=== PATIENT | female | born 1985 | race Caucasian/White ===

== ENCOUNTER 2016-11-29 19:59 | Emergency (ER) | payer OTHER ==
--- NOTE | ~2016-11-29 | CT4 ---
[facility] A Service of [facility] RADIOLOGY TEXT RESULTS PATIENT: ROSAMARIA FOSTER LOCATION: [facility] : 85 UNIT #: [id number] AGE: [address]: Robert Art DO SEX: F ORDER DR: [id number] [facility] [address] [place], [place] [address] [id number] E MR#: [id number] Acc #: [id number] NAME: ROSAMARIA FOSTER : 1985 SEX: F STUDY DATE/TIME: 11/29/2016 22:05 UNIT: [facility] ROOM: STUDY DESCRIPTION: CT Abd and Pelv Wo Cont Attending Physician: Robert Art D.O. Ordering Physician: Robert Art D.O. MEDICAL IMAGING REPORT This report is preliminary unless electronic signature is present EXAM CT of the abdomen and pelvis without contrast HISTORY Right flank pain for the past [address] of the abdomen and pelvis. This CT exam was performed with one or more of the following radiation dose reduction techniques: automatic exposure control, adjustment of mA and/or kV according to patient size, and iterative reconstruction. COMPARISON 11/12/2013 FINDINGS ABDOMEN WITHOUT CONTRAST: The liver, spleen, adrenal glands, pancreas, gallbladder have an unremarkable, unenhanced appearance. The bowel loops are nondilated. No radiodense urinary system calculus or hydronephrosis. The appendix is not well seen on this study. PELVIS WITHOUT CONTRAST: No radiodense bladder calculus. No aggressive appearing bone lesion. IMPRESSION 1. No clearly acute finding. No radiodense urinary system calculus or hydronephrosis. 2. Appendix not clearly seen on this study. Dictated by... Lauro Munoz M.D. [facility] A Service [facility] RADIOLOGY TEXT RESULTS PATIENT: ROSAMARIA FOSTER LOCATION: [facility] : 85 UNIT #: [id number] AGE: [address]: Hottman,Robert M DO SEX: F ORDER DR: THIS IS AN ELECTRONICALLY VERIFIED REPORT Lauro Munoz M.D. at 12/09/2016 3:30 PM Annalisa TD: 11/30/2016 09:03 JOB #: [id number] MEDICAL IMAGING REPORT Page 1 of 1 COPY
[~2016-11-29 19:59] MED LIST: BACIT-POLYMYXI3.5 GM OP; BACTRIM DS TABL1 TA1 PO; BACTRIM DS TABL1 TA2 PO; BACTRIM DS TABL1 TAB PO; CIPRO PO; DARVOCET-N 1001 TAB PO; FIORICET 50-321 EACH PO; FIORINAL CAPSUL1 CAP PO; FLEXERIL PO; FLEXERIL10 M1 PO; FLEXERIL10 MG PO; IBUPROFEN800 MG PO; KCL PO; LAMICTAL PO; LOPRESSOR PO; LORTAB 5/500 TA1 TA1 PO; MACRODANTIN PO; MUCINEX DM1 TAB.SR . PO; NO MEDICATIONS; OMNICEF300 MG PO; PHENERGAN PO; PHENERGAN25 M1 PO; PHENERGAN25 MG PO; PRENATAL VITAMI1 TA3 PO; PRILOSEC20 MG PO; PYRIDIUM PO; PYRIDIUM100 MG PO; SUBOXONE 12 MG1 EACH; TYLENOL #3 PO; TYLOX 5/500 CAP1 CAP PO; ULTRAM PO; VICODIN 5/1 TAB 5/50 PO; VICODIN 5/500 T1 TAB PO; VICODIN PO; VOLTAREN75 MG PO; ZOFRAN PO; [UNRECOGNIZED DRUG - OTHER] PO; [UNRECOGNIZED DRUG - REMARK]
[2016-11-29 22:17] LABS: URINE SOURCE CLEAN CATCH
[2016-11-29 22:21] LABS: URINE APPEARANCE CLEAR; URINE BLOOD NEG (NEG); URINE COLOR DK YELLOW; URINE GLUCOSE NEG (NEG); URINE KETONE NEG (NEG); URINE LEUKOCYTE ESTERASE NEG (NEG); URINE NITRATE NEG (NEG); URINE PH 7.5 (5-8); URINE PROTEIN TRACE (NEG); URINE SPECIFIC GRAVITY 1.028 (1.003-1.035)
[2016-11-29 22:24] LABS: BASOPHIL% 0.6 % (0-2.5); EOSINOPHIL# 0.4 X10e3 (0-0.7); EOSINOPHIL% 5.3 % (0.0-7.0); LYMPHOCYTE# 2.3 X10e3 (1.0-3.5); LYMPHOCYTE% 32.2 % (17.0-45.0); MEAN CELL VOLUME 88.6 FL (83-96); MEAN CORPUSCULAR HEMOGLOBIN 28.7 PG (28-34); MEAN CORPUSCULAR HGB CONC 32.4 g/dL (30-36); MEAN PLATELET VOLUME 8.6 FL (6.5-11.5); MONOCYTE# 0.4 X10e3 (0-1.0); MONOCYTE% 5.9 % (3.0-12.0); PLATELET COUNT 249 X10e3 (140-420); RED BLOOD COUNT 4.52 X10e (3.90-5.30); RED CELL DISTRIBUTION WIDTH 15.3 % (11.0-15.5); WHITE BLOOD COUNT 7.2 X10e3 (4.0-10.5)
[2016-11-29 22:33] LABS: AMPHETAMINE NEG (NEG); BARBITURATES NEG (NEG); BENZODIAZEPINES NEG (NEG); COCAINE NEG (NEG); CULTURE INDICATED? NO; MARIJUANA POS (NEG); OPIATES POS (NEG); TRICYCLIC ANTIDEPRESSANTS NEG (NEG); U METHADONE NEG (NEG)
[2016-11-29 22:35] LABS: DIFF IND NO
[2016-11-29 22:53] LABS: ALBUMIN SERUM 4.5 g/dL (3.5-5.0); ALKALINE PHOSPHATASE 78 U/L (32-92); ALT (SGPT) 36 U/L (10-40); AST (SGOT) 34 U/L (10-42); BILIRUBIN,TOTAL 0.7 mg/dL (0.2-2.0); BLOOD UREA NITROGEN 21 mg/dL (9-23); CALCIUM SERUM 9.2 mg/dL (8.4-10.2); CARBON DIOXIDE 29 mmol/L (22-31); CHLORIDE 99 mmol/L (100-111); CREATININE SERUM 0.7 mg/dL (0.6-1.4); GLOM FILT RATE Estimated 115.5 mL/min (>60); GLUCOSE FASTING 77 mg/dL (70-110); LIPASE 23 U/L (22-51); POTASSIUM 3.4 mmol/L (3.5-5.1); PROTEIN TOTAL SERUM 8.3 g/dL (6.0-8.3); SODIUM 135 mmol/L (135-145)
[2016-11-29 22:55] LABS: BILIRUBIN, DIRECT <0.1 mg/dL (0.0-0.2); BILIRUBIN,INDIRECT 0.6 mg/dL (0.0-0.9)
== END 2016-11-30 01:28 | disposition home or self-care (01) ==
LOC: CED 19:59
PROVIDERS: Emergency Medicine
DX: M54.9 Dorsalgia, unspecified (principal); Z98.51 Tubal ligation status; Z88.6 Allergy status to analgesic agent; F17.200 Nicotine dependence, unspecified, uncomplicated
CPT/HCPCS: 36415; 74176; 80048; 80076; 80307; 81003; 83690; 84703; 85025; 96374; 99284; J1885